=== PATIENT | female | born 1975 | race African-American/Black ===

== ENCOUNTER 2017-12-28 02:12 | Emergency (ER) | payer MEDICAID ==
[2017-12-28] MEDS ORDERED: IBUPROFEN 800 MG TAB PO ONE (02:17)
--- NOTE | 2017-12-28 02:22 | EDPHY ---
H & P Time Seen by Provider: 12/28/17 02:19 HPI/ROS: HPI CHIEF COMPLAINT: "I am Cold, Right Shoulder Pain" HISTORY OF PRESENT ILLNESS: 42-year-old female, [place]. She presents by ambulance with her . She lives in [place] however they missed the last bus to go to [place]. Got cooler out and she states this started acting up her arthritis. She states year ago she was injured on a [employer] bus. She fell on her right shoulder and neck. She developed right shoulder pain. She states this evening she was waiting for the bus and got colder out this flared up her arthritis and she decided call 911 and come to the emergency room to warm up. Past Medical History: Medical history significant for anxiety, chronic pain, arthritic pain Past Surgical History: No recent surgery Social History: Denies drugs alcohol tobacco. Lives in [place]. Family History: Noncontributory ROS REVIEW OF SYSTEMS: A comprehensive 10 point review of systems is otherwise negative aside from elements mentioned in the history of present illness. Exam Constitutional nontoxic. No acute distress triage nursing summary reviewed, vital signs reviewed, awake/alert. Eyes normal conjunctivae and sclera, EOMI, PERRLA. HENT normal inspection, atraumatic, moist mucus membranes, no epistaxis, neck supple/ no meningismus, no raccoon eyes. Respiratory clear to auscultation bilaterally, normal breath sounds, no respiratory distress, no wheezing. Cardiovascular rate normal, regular rhythm, no murmur, no edema, distal pulses normal. Gastrointestinal soft, non-tender, no rebound, no guarding, normal bowel sounds, no distension, no pulsatile mass. Genitourinary no CVA tenderness. Musculoskeletal right shoulder: Mild tender palpation over the right lateral shoulder however does have full range of motion is neurovascularly distally intact good radial pulse, no midline vertebral tenderness, full range of motion , no calf swelling, no tenderness of extremities, no meningismus, good pulses, neurovascularly intact. Skin pink, warm, & dry, no rash, skin atraumatic. Neurologic awake, alert and oriented x 3, AAOx3, moves all 4 extremities equally, motor intact, sensory intact, CN II-XII intact, normal cerebellar, normal vision, normal speech. Psychiatric normal mood/affect. Heme/Lymph/Immune no lymphadenopathy. Differential Diagnosis: Includes but is not limited to in a particular order shoulder strain, arthritic pain, chronic pain, anxiety Medical Decision Making: Plan for this patient x-ray right shoulder rule out acute traumatic injury, ibuprofen 800 mg. Re-evaluate. Re-evaluation: X-ray right shoulder reviewed negative for acute traumatic injury. Somewhat limited due to body habitus. But no evidence of acute fracture. Patient has been sleeping here in the emergency room at 408 she is re-evaluated resting comfortably no acute distress. Recommend she follows up with primary care doctor outpatient basis. Return emergency room if there is any worsening pain questions or concerns. Source: Patient, EMS Constitutional: Initial Vital Signs Temperature (C) 37.0 C 12/28/17 02:32 Heart Rate 88 12/28/17 02:32 Respiratory Rate 20 12/28/17 02:32 Blood Pressure 162/100 H 12/28/17 02:32 O2 Sat (%) 96 12/28/17 02:32 O2 Delivery Mode Room Air Allergies/Adverse Reactions: amoxicillin [From Augmentin] Allergy (Verified 12/28/17 02:21) clavulanic acid [From Augmentin] Allergy (Verified 12/28/17 02:21) erythromycin base Allergy (Verified 12/28/17 02:23) Home Medications: Medication Instructions Recorded Cogentin 12/28/17 Flexeril 10 MG (*) 12/28/17 Gabapentin 12/28/17 Geodon 12/28/17 Haldol 0.5 MG (*) 12/28/17 Lamictal 12/28/17 Norvasc 5 mg (*) 12/28/17 traZODone 12/28/17 Medical Decision Making - Data Points Medications Given: Discontinued Medications Ibuprofen (Motrin) 800 mg PO EDNOW ONE Stop: 12/28/17 02:18 Last Admin: 12/28/17 02:40 Dose: 800 mg Departure - Departure Disposition: Home, Routine, Self-Care Clinical Impression: Chronic pain Qualifiers: Chronic pain type: chronic pain syndrome Qualified Code(s): G89.4 - Chronic pain syndrome Condition: Good Instructions: Chronic Pain (ED) Referrals: Patient,NotPresent [Unknown] - As per Instructions
[2017-12-28 04:14] VITALS: BP 162/106
== END 2017-12-28 04:17 | disposition home or self-care (01) ==
DX: M25.511 Pain in right shoulder (principal); G89.4 Chronic pain syndrome